=== PATIENT | male | born 1960 | race Native Hawaiian/Other Pacific Islander ===

== ENCOUNTER → 2017-01-23 09:47 | Outpatient (CLI) | payer OTHER ==
[~2017-01-23 09:47] MED LIST: ALBU90AE13 INH; ALEVE220 MG OR; ALKA-SELTZE1 PO; ALLO100T22 PO; AMITRIPTYLIN50 MG PO; BAYER ASA325 M1 PO; CARB200T42 PO; CELEXA40 MG PO; CLONIDINE0.1 MG PO; CRESTOR20 MG PO; DIAZ5TAB20 PO; FURO20TA67 PO; FURO40TA93 PO; HYDR10TA47 PO; HYDR50CA21 PO; HYDROCHLOROT12.5 M1 PO; HYDROCO/APAP1 TA2 PO; HYDROXYZ PAM100 MG PO; LAMICTAL25 MG PO; LEVE500T5 PO; LISI20TA24 PO; METO50TA27 PO; METO5TAB38 PO; MYSOLINE250 MG PO; MYSOLINE50 MG PO; NITROSTAT0.4 MG SL; PEPCID40 MG PO; POTASSIUM CHLO20 ME1 PO; PROM25TA52 PO; QUET100T2 PO; RISP0.5T2 PO; SPIR25TA66 PO; STOOL SOFTNR100 M1 PO; TEGRETOL200 MG PO; TIZA4TAB5 PO; TRAM50TA PO; VITAMIN D22000 UNIT PO; [UNRECOGNIZED DRUG - OTHER] PO
== END | disposition short-term general hospital (02) ==
LOC: AMB 09:47